=== PATIENT | female | born 1990 | race Two or more races ===

== ENCOUNTER 2017-02-20 16:56 | Observation (INO) | payer OTHER ==
[2017-02-20 18:31] LABS: HEMATOCRIT 36.3 % (38.0-47.0); HEMOGLOBIN 12.4 g/dL (12.6-16.3); LIPEMIA HEMOLYSIS FLAG 90 (0-99); MEAN CELL HEMOGLOBIN CONCENTR. 34.2 g/dL (32.4-36.7); MEAN CELL VOLUME 93.6 fL (81.5-99.8); PLATELET CLUMPS FLAG 10 (0-99); PLATELET COUNT 212 10^3/uL (150-400); RED BLOOD CELL COUNT 3.88 10^6/uL (4.18-5.33); RED CELL DISTRIBUTION WIDTH 13.6 % (11.5-15.2)
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
== END 2017-02-20 20:45 | disposition home or self-care (01) ==
LOC: FLD 16:56
PROVIDERS: ADMIT Obstetrics & Gynecology; ATTEND Obstetrics & Gynecology
DX: O46.92 Antepartum hemorrhage, unspecified, second trimester (principal); O99.342 Other mental disorders complicating pregnancy, second trimester; F41.9 Anxiety disorder, unspecified; Z3A.27 27 weeks gestation of pregnancy
CPT/HCPCS: 59025; G0378

== ENCOUNTER 2017-03-12 14:15 | Observation (INO) | payer OTHER ==
[2017-03-12] MEDS ORDERED: ZOLPIDEM TARTRATE 5 MG TAB PO ONE ×2 (17:17→22:00)
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
== END 2017-03-13 15:15 | disposition home or self-care (01) ==
LOC: EEVIPCON 14:15 → FLD 14:15
PROVIDERS: ADMIT Obstetrics & Gynecology; ATTEND Obstetrics & Gynecology
DX: O26.893 Other specified pregnancy related conditions, third trimester (principal); O99.820 Streptococcus B carrier state complicating pregnancy; R10.2 Pelvic and perineal pain; T76.11XA Adult physical abuse, suspected, initial encounter; Z3A.30 30 weeks gestation of pregnancy
CPT/HCPCS: G0378 ×2